=== PATIENT | female | born 1990 | race Caucasian/White ===

== ENCOUNTER 2018-01-20 07:05 | Inpatient (IN) | payer OTHER ==
[2018-01-20] MEDS ORDERED: LACTATED RINGERS 1,000 ML IV PRN (08:48)
[2018-01-20] MEDS ORDERED: OXYTOCIN 10000 MU/ML SOL IM PRN (08:48)
[2018-01-20] MEDS ORDERED: CARBOPROST 250 MCG/ML SOL IM PRN (08:48)
[2018-01-20] MEDS ORDERED: FENTANYL 100MCG/2ML SOL IV PRN (08:48)
[2018-01-20] MEDS ORDERED: SODIUM CHLORIDE 0.9% FLUSH 10 ML SOL IV PRN (08:48)
[2018-01-20] MEDS ORDERED: METHYLERGONOVINE MALEATE 0.2 MG/ML SOL IM PRN (08:48)
[2018-01-20] MEDS ORDERED: MEPIVACAINE HCL 1% MPF 30 ML SOL INFIL PRN (08:48)
[2018-01-20] MEDS ORDERED: SODIUM CHLORIDE 0.9% 50 ML 25 ML IV PRN (08:51)
[2018-01-20 09:02] LABS: BASOPHILS % (AUTO) 1 % (0-3); EOSINOPHILS % (AUTO) 1 % (0-9); HEMATOCRIT 37 % (35-47); HEMOGLOBIN 12.4 gm/dl (12.0-15.5); LYMPHOCYTES % (AUTO) 23.2 % (10-50); MEAN CORPUSCULAR HEMOGLOBIN 29.4 pg (27.0-32.0); MEAN CORPUSCULAR HGB CONC 33.1 gm/dl (32.0-36.0); MEAN CORPUSCULAR VOLUME 89 fL (81-99); MONOCYTES % (AUTO) 6.8 % (0-12); NEUTROPHILS % (AUTO) 68.6 % (37-80)
[2018-01-20] MEDS ORDERED: CLINDAMYCIN 150 MG/ML SOL ONE ×2 (09:07→17:11)
[2018-01-20] MEDS: CLINDAMYCIN 150 MG/ML 900 MG in SODIUM CHLORIDE 0.9% 100 ML 100 ML IV SCH ×2 (09:28→17:20)
[2018-01-20] MEDS ORDERED: ROPIVACAINE HYDROCHLORIDE 5 MG/ML SOL ONE ×2 (10:19→16:09)
[2018-01-20] MEDS: SODIUM CHLORIDE 0.9% FLUSH 10 ML SOL IV SCH ×2 (10:45→17:33)
[2018-01-20] MEDS ORDERED: DIPHENHYDRAMINE 50 MG/ML SOL IV PRN (14:31)
[2018-01-20] MEDS ORDERED: NALBUPHINE HCL 20 MG/ML SOL IV PRN (14:31)
[2018-01-20] MEDS ORDERED: NALOXONE HYDROCHLORIDE 0.4 MG/ML SOL IV PRN (14:31)
[2018-01-20] MEDS ORDERED: EPHEDRINE SULFATE 50 MG/ML SOL IV PRN (14:31)
[2018-01-20] MEDS ORDERED: TERBUTALINE SULFATE 1 MG/ML SOL SC PRN (15:41)
[2018-01-20] MEDS ORDERED: OXYTOCIN 10000 MU/ML 20,000 MU in LACTATED RINGERS 1,000 ML IV SCH (15:45)
[2018-01-20] MEDS ORDERED: LACTATED RINGERS 1,000 ML IV SCH (15:45)
[2018-01-20] MEDS ORDERED: OXYTOCIN 10000 MU/ML SOL ONE (15:47)
[2018-01-20] MEDS ORDERED: LACTATED RINGERS 1,000 ML ONE (15:47)
[2018-01-20] MEDS: LACTATED RINGERS 1,000 ML IV SCH ×4 (15:56→22:46)
[2018-01-20] MEDS ORDERED: FENTANYL 250 MCG/ 5ML SOL ONE (16:09)
[2018-01-20] MEDS ORDERED: LIDOCAINE HCL 2% MPF SOL ONE (16:09)
[2018-01-20] MEDS: ONDANSETRON HCL 4 MG/2 ML SOL IV PRN ×2 (18:17→22:30)
[2018-01-21] MEDS ORDERED: APAP/HYDROCODONE 325/5 TAB PO PRN (00:26)
[2018-01-21] MEDS ORDERED: BISACODYL 10 MG SUP PR PRN (00:26)
[2018-01-21] MEDS ORDERED: WITCH HAZEL 1 EA PAD TOP PRN (00:26)
[2018-01-21] MEDS ORDERED: METHYLERGONOVINE MALEATE 0.2 MG TAB PO PRN (00:26)
[2018-01-21] MEDS ORDERED: FLEET ENEMA PR PRN (00:26)
[2018-01-21] MEDS ORDERED: BENZOCAINE/MENTHOL 1 SPR TOP PRN (00:26)
[2018-01-21] MEDS ORDERED: TEMAZEPAM 15MG 15 MG CAP PO PRN (00:26)
[2018-01-21] MEDS: IBUPROFEN 600 MG TAB PO PRN ×4 (00:45→21:03)
[2018-01-21] MEDS: SODIUM CHLORIDE 0.9% FLUSH 10 ML SOL IV SCH ×3 (01:30→20:21)
[2018-01-21] MEDS: CLINDAMYCIN 150 MG/ML 900 MG in SODIUM CHLORIDE 0.9% 100 ML 100 ML IV SCH (01:30)
[2018-01-21] MEDS: DOCUSATE SODIUM 100 MG SGL PO SCH ×2 (08:48→21:03)
[2018-01-22] MEDS: SODIUM CHLORIDE 0.9% FLUSH 10 ML SOL IV SCH (00:20)
[2018-01-22] MEDS: IBUPROFEN 600 MG TAB PO PRN ×2 (04:59→09:03)
[2018-01-22 05:55] VITALS: O2SAT 98
[2018-01-22] MEDS: DOCUSATE SODIUM 100 MG SGL PO SCH (09:03)
[2018-01-22 10:04] VITALS: BP 130/85; PULSE 87; RESP 20; TEMP 98.2
== END 2018-01-22 16:10 | disposition home or self-care (01) | DRG 775 ==
LOC: OBSVTOIN 07:05 → OB 07:05
PROVIDERS: ADMIT Family Medicine; ATTEND Family Medicine
PROC: 10907ZC Drainage of Amniotic Fluid, Therapeutic from Products of Conception, Via Natural or Artificial Opening (ICD-10-PCS; 2018-01-20)
PROC: 10E0XZZ Delivery of Products of Conception, External Approach (ICD-10-PCS; principal; 2018-01-21)
DX: O80 Encounter for full-term uncomplicated delivery (principal); O99.824 Streptococcus B carrier state complicating childbirth
CPT/HCPCS: 36415; 59025; 85018; 85025; J2405; J2590; J2795; J3010; J3105; J3490; A9270-GY

== ENCOUNTER 2019-04-17 10:08 | Emergency (ER) | payer OTHER ==
[2019-04-17 10:08] VITALS: O2SAT 98
[2019-04-17 10:41] VITALS: BP 118/81; PULSE 74; RESP 20; TEMP 98
[2019-04-17] MEDS ORDERED: PREDNISOLONE ACETATE 1% OPHTH 1 DROP SUS OP SCH (14:00)
== END 2019-04-17 11:49 | disposition home or self-care (01) | DRG 607 ==
LOC: ED 10:08
DX: L30.9 Dermatitis, unspecified (principal)
CPT/HCPCS: 99282; A9270-GY